=== PATIENT | female | born 1965 | race Caucasian/White ===

== ENCOUNTER 2019-12-04 08:43 | Day surgery (SDC) | payer OTHER ==
[~2019-12-04] VITALS: Ht 162.6 cm; Wt 122.0 kg
[~2019-12-04 08:43] MED LIST: Voltaren100 GM TOP
--- NOTE | 2019-12-04 09:20 | NUR ---
Ambulatory in Day Surgery. History, Chart, Medications and Allergies reviewed before start of procedure. Lungs clear T/O to Auscultation. Patient States Post-Procedure ride home has been arranged.
--- NOTE | 2019-12-04 12:19 | NUR ---
"SENIOR SYSTEMS ADMINISTRATOR | REPORT TO BABAK DE LEON PATIENT HAD EMESIS OF ABOUT 15 ML. NEW ORDERS FOR ZOFRAN OBTAINED FROM DR. SUNG. DR SUNG AWARE OF BLOOD PRESSURE. SITE C/D/I. DENIES PAIN AT SITE STATES PAIN IN SHOULDER 09/16. A/O. REPORT TO BABAK DE LEON."
--- NOTE | 2019-12-04 13:20 | NUR ---
PT AMB TO BATHROOM WITH STEADY GAIT. REPORTS PAIN MEDICATION WORKING STATES PAIN IS 5/10.
--- NOTE | 2019-12-04 13:30 | NUR ---
Patient States Post-Procedure ride home has been arranged. Discharge instructions reviewed with patient. Patient verbalizes understanding. Copy given to patient to take home. Discharged via wheelchair to private car for ride home.
== END 2019-12-04 13:30 | disposition home or self-care (01) ==
LOC: ORSCMMR 08:43 → ORD 11:15 → ORSCMMR 11:15 → ORD 12-24 07:30
PROVIDERS: Surgery
PROC: 0JB50ZZ Excision of Left Neck Subcutaneous Tissue and Fascia, Open Approach (ICD-10-PCS; principal; 2019-12-04 10:00)
PROC: 0JB40ZZ Excision of Right Neck Subcutaneous Tissue and Fascia, Open Approach (ICD-10-PCS; principal; 2019-12-04 10:00)
DX: D17.0 Benign lipomatous neoplasm of skin and subcutaneous tissue of head, face and neck (principal); E66.01 Morbid (severe) obesity due to excess calories; Z68.42 Body mass index [BMI] 45.0-49.9, adult; Z79.899 Other long term (current) drug therapy
CPT/HCPCS: 88304; J0330; J0690; J2250; J2405; J2704; J3010; J7120